=== PATIENT | male | born 1980 | race Caucasian/White ===

== ENCOUNTER 2019-07-21 13:51 | Emergency (ER) | payer OTHER ==
[~2019-07-21] VITALS: Ht 167.6 cm; Wt 87.0 kg
[2019-07-21] MEDS ORDERED: ketorolac tromethamine 15mg/ml inj. IM ONE (14:40)
[2019-07-21 15:29] VITALS: BP 162/116
== END 2019-07-21 15:46 | disposition home or self-care (01) ==
LOC: ER 13:52
DX: S16.1XXA Strain of muscle, fascia and tendon at neck level, initial encounter (principal); M25.511 Pain in right shoulder; I10 Essential (primary) hypertension; R42 Dizziness and giddiness; R51 Headache; R11.0 Nausea; W20.8XXA Other cause of strike by thrown, projected or falling object, initial encounter; Y93.89 Activity, other specified; Y92.89 Other specified places as the place of occurrence of the external cause; Y99.0 Civilian activity done for income or pay
CPT/HCPCS: 72125; 73000; 96372; 99284; J1885

== ENCOUNTER 2025-09-01 17:36 | Emergency (ER) | payer OTHER ==
[~2025-09-01] VITALS: Ht 177.8 cm; Wt 90.9 kg
--- NOTE | 2025-09-01 18:19 | ELECTROCARDIOGRAPH REPORT ---
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 ROSARIO Lawson Measurements Intervals [place] Rate: 90 P: 46 MS: 215 QRS: 8 QRSD: 109 T: 23 QT: 373 QTc: 457 Interpretive Statements Sinus rhythm Prolonged MS interval ST elev, probable normal early repol pattern Electronically Signed On 09-02-2025 17:27:[address] ROSARIO Lawson Please click the below link to view image of tracing.
--- NOTE | 2025-09-01 18:39 | RADIOLOGY REPORT ---
EXAM: DI CHEST,SINGLE VIEW HISTORY: CP TECHNIQUE: 1 view of the chest COMPARISON: None FINDINGS/IMPRESSION: LUNGS: No pleural effusion, consolidation, or pneumothorax. MEDIASTINUM: Unremarkable. BONES: No acute osseous abnormality. OTHER: None.
--- NOTE | 2025-09-01 18:42 | Physician Documentation ---
History of Present Illness ~ Chief Complaint: Dizziness Stated Complaint: CHEST PAIN/ DIZZINESS Time Seen by MD: 18:41 Primary Medical Doctor: None Mode of Arrival: Ambulatory HPI Patient presents to the emergency room with chief complaint of chest tightness shortness of breath and dizziness. He states he has had several episodes like this over the past month. He states he was sitting in his desk working when he suddenly began having unusual feeling. Upon EMS arrival patient felt so terrible he could not stand like he is going to pass out. Symptoms have completely resolved. He does not smoke but does endorse history of high blood pressure but denies history of hyperlipidemia or diabetes. He states it felt like he was going to pass out but he had not actually syncopize. Medication Reconciliation Allergies: Coded Allergies: No Known Allergies (Unverified , 09/01/25) Past Medical History Past Medical History: Hypertension Past Surgical History: noncontributory Alcohol Use: None Drug Use: none Review of Systems ROS All review of systems negative except as per HPI Physical Exam Vital Signs: Temperature: 97.6, Source: Oral, Heart Rate: 91, Respiratory Rate: 15, BP: 129/83, Pulse Oximetry: 93, Weight: 90.910 Physical Exam General: Patient is awake, alert, oriented x4 in no acute distress and well appearing.~ Head: Normocephalic and atraumatic. Eyes: Conjunctival normal. EOMI. PERRL. ENT: Mucous membranes moist. Neck: Supple, trachea is midline. Chest: Clear to auscultation bilaterally without rales, rhonchi, or wheezes. There is no accessory muscle use or retractions. Cardiac: RRR without murmurs, gallops, or rubs. Abd: Soft, nondistended, nontender, with normoactive bowel sounds. No guarding, rebound, or rigidity. Extremities: Normal strength. Normal range of motion. No deformities or edema. Progress Results/Orders Results/Orders Vital Signs 09/01/25 09/01/25 09/01/25 17:44 18:33 19:33 Temp 97.6 97.6 97.6 Pulse 88 91 86 Resp 18 15 23 B/P (MAP) 131/93 129/83 (98) 123/90 (101) Pulse Ox 99 93 96 Laboratory Tests Test 09/01/25 18:39 09/01/25 20:20 White Blood Count 9.2 Red Blood Count 4.79 Hemoglobin 14.0 Hematocrit 41.1 L Mean Corpuscular Volume 85.7 Mean Corpuscular Hemoglobin 29.2 Mean Corpuscular Hemoglobin Concent 34.0 Red Cell Distribution Width 14.7 H Platelet Count 308 Mean Platelet Volume 9.2 Neutrophils (%) (Auto) 79.4 H Lymphocytes (%) (Auto) 12.5 L Monocytes (%) (Auto) 7.1 Eosinophils (%) (Auto) 0.4 Basophils (%) (Auto) 0.6 Neutrophils # (Auto) 7.3 Lymphocytes # (Auto) 1.2 Monocytes # (Auto) 0.7 Eosinophils # (Auto) 0.0 Basophils # (Auto) 0.1 CBC Comment Sodium Level 136 Potassium Level 3.8 Chloride Level 102 Carbon Dioxide Level 26.1 Anion Gap 8 Blood Urea Nitrogen 10 Creatinine 0.86 Estimated GFR/1.73 m2 > 90 BUN/Creatinine Ratio 11.6 Glucose Level 104 Calcium Level 8.2 L Troponin I High Sensitivity 4 4 Pro-B-Type Natriuretic Peptide 36 Albumin 4.0 Chemistry Comments Troponin I High Sens Percent Delta 0 Troponin I Hi Sens Absolute Change 0 EKG/XRAY/CT/US/VASC/MRI EKG : Additional Comment EKG interpreted by myself shows time of 1743, rate 90, sinus rhythm, normal axis, no ST changes Abdominal X-Ray : Additional Comment Exam: CHEST,SINGLE VIEW EXAM: DI CHEST,SINGLE VIEW HISTORY: CP TECHNIQUE: 1 view of the chest COMPARISON: None FINDINGS/IMPRESSION: LUNGS: No pleural effusion, consolidation, or pneumothorax. MEDIASTINUM: Unremarkable. BONES: No acute osseous abnormality. OTHER: None. Medical Decision Making Additional information obtaine: N/A Findings Patient presents to the emergency room with chest discomfort and racing heartbeat. Differentials include but are not limited to ACS, panic attack, car diac arrhythmia, electrolyte disturbances, dehydration therefore emergent labs and imaging ordered. Chest x-ray is reassuring as are labs. Troponins negative x2. Possibility of arrhythmia med discussed with patient. After discussing risks benefits alternatives and offering admission patient would prefer to follow up with his primary care with ER precautions discussed. Heart score two Differential Dx:Considerations: Include: anemia, CVA, dehydration, dysrhythmia, electrolyte imbalance, encephalopathy, Guillain-[place], hypoglycemia, hypotension, hypovolemia, labyrinthitis, Meniere's disease, myasathenia gravis, myocardial infarction, pulmonary embolus, renal failure, respiratory failure, TIA, VBI, vertigo central, vertigo peripheral, vestibular neuronitis, other Departure Disposition: HOME / SELF CARE / HOMELESS Impression: Primary Impression: Palpitations Condition: Stable Discharge Instructions: Palpitations Additional Instructions: Call your provider tomorrow to arrange for close follow up Referrals: NO PRIMARY CARE PROVIDER (PCP) Signature Scribe Signature: No scribe Attestation: The note accurately reflects work and decisions made by me.Naga Andrews MD 09/01/25 21:08 NAGA ANDREWS MD Sep 01, 2025 18:42
[2025-09-01 19:00] LABS: MEAN PLATELET VOLUME 9.2 FL (7.4-10.4); RED CELL DISTRIBUTION WIDTH 14.7 % (11.5-14.5)
[2025-09-01 19:24] LABS: CREATININE 0.86 MG/DL (0.60-1.10); PRO BRAIN NATRIURETIC PEPTIDE 36 PG/ML (0-125); TOTAL CARBON DIOXIDE 26.1 MMOL/L (24-32); eCRCL 110 ML/MIN; eGFR > 90 ML/MIN
[2025-09-01 19:33] VITALS: BP 123/90; PULSE 86; RESP 23; O2SAT 96
[2025-09-01 21:11] VITALS: TEMP 97.6
== END 2025-09-01 21:26 | disposition home or self-care (01) ==
LOC: ER 17:36
DX: R00.2 Palpitations (principal); I10 Essential (primary) hypertension
CPT/HCPCS: 36415; 71045; 80048; 83880; 84484; 85025; 93005; 99285